=== PATIENT | female | born 1970 | race Caucasian/White ===

== ENCOUNTER 2025-06-27 10:34 | Emergency (ER) | payer OTHER, SELFPAY ==
--- NOTE | ~2025-06-27 | XR_ITS ---
EXAMINATION: XR ankle RT min 3V DATE: 06/27/2025 12:43 INDICATION: Atraumatic left ankle pain TECHNIQUE: Anteroposterior, oblique, mortise, and lateral views of the left ankle were obtained. COMPARISON: None. FINDINGS: Alignment is normal. No fracture. Joint spaces are well maintained. No cortical erosions or periosteal reaction. No ankle joint effusion. The soft tissues are unremarkable. IMPRESSION: 1. Negative left ankle radiographs. Reviewed, dictated and finalized at location A. 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
--- NOTE | ~2025-06-27 | US_ITS ---
EXAMINATION: US venous doppler LE RT DATE: 06/27/2025 12:52 INDICATION: Atraumatic right lower limb pain TECHNIQUE: Grayscale ultrasound images without and with compression and Doppler ultrasound images of the right lower extremity veins were obtained. COMPARISON: None. FINDINGS: The visualized portions of right common femoral vein, profunda (deep) femoral vein, femoral vein, popliteal vein, peroneal trunk, posterior tibial veins, peroneal veins, gastrocnemius vein and greater saphenous vein outflow are patent. IMPRESSION: 1. No deep venous thrombosis in the right lower limb. Reviewed, dictated and finalized at location A. 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
[2025-06-27 10:45] VITALS: BP 123/76; PULSE 90; RESP 16; TEMP 36.6; O2SAT 97
--- NOTE | 2025-06-27 12:33 | ED.EXTPRO ---
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 Related Data Home Medications ?Medication ?Instructions ?Recorded ?Confirmed ?Last Taken ?Type multivitamin with minerals-folic 0.4 mg PO DAILY 06/15/19 12/13/24 3 Days Ago History acid 0.4 mg tablet (Adult One ~06/24/19 Daily Multivitamin) vit D3-folic acid-vit B2-B6-B12 1 tablet PO DAILY 06/15/19 12/13/24 3 Days Ago History 2,000 unit-800 mcg-0.32 mg tablet ~06/24/19 Allergies Allergy/AdvReac Type Severity Reaction Status Date / Time No Known Allergies Allergy Unknown Verified 06/27/25 10:49 Review of Systems Review of Systems: All systems reviewed & are unremarkable except as noted in HPI and below PMFSH Past Medical History Medical History (Updated 06/27/25 @ 13:02 by Kendra Daniel MD) Recurrent cold sores Stress incontinence Panic disorder [episodic paroxysmal anxiety] Anemia Anxiety Surgical History Surgical History History of total vaginal hysterectomy (TVH) 06/28/2019 History of endometrial biopsy 11/2011 H/O tubal ligation History of endometrial ablation Family History Family History Sibling , of heart attack at age 35 No problems noted. Father Hypertension Mother No problems noted. Grandparent Heart disease Cancer Social History Social History Smoking status: Never smoker Alcohol intake: current Substance use: never Substance use type: does not use Lack of Transportation: No Lack of Food: Never True Current Housing: I Have Housing Concerned About Future Housing: No Difficulty Paying Gas/Electric Bills: No Difficulty Paying for Meds: No Currently Unemployed: No Education: High School Diploma/GED Difficulty w/ Childcare or Family Care: No Living arrangements: with family Occupation/Education: occupation Gender identity (if verbalized by the patient): Female Sexual Orientation (if Verbalized by the Patient): Straight or Heterosexual Exam Narrative: EXAMINATION OF ORGAN SYSTEMS/BODY AREAS: Constitutional: Vital signs per nursing GENERAL:[No acute distress, non-toxic appearing.] HEAD: Normal with no signs of head trauma. EYES: EOMI, conjunctiva normal ENT: Hearing grossly intact LUNGS: Nonlabored breathing. HEART: [Regular rate and rhythm] ABD: [Soft], [nontender to palpation] EXT: Normal range of motion; some tenderness to R ankle. No swelling. SKIN: [No rashes or lesions.] NEURO: [Alert. No gross focal sensory or strength deficits.] PSYCH: Normal affect Course Vital Signs Vital signs: Vital Signs Temperature 97.8 F 06/27/25 10:45 Pulse Rate 90 06/27/25 10:45 Respiratory Rate 16 06/27/25 10:45 Blood Pressure 123/76 06/27/25 10:45 Pulse Oximetry 97 06/27/25 10:45 Oxygen Delivery Room Air 06/27/25 10:45 Temperature 97.8 F 06/27/25 10:45 Pulse Rate 69 06/27/25 13:20 Respiratory Rate 14 06/27/25 13:20 Blood Pressure 114/60 06/27/25 13:20 Pulse Oximetry 99 06/27/25 13:20 Oxygen Delivery Room Air 06/27/25 10:45 [facility] MDM Narrative Medical decision making narrative: Patient presents with 2 weeks now with pain to her lower leg/ankle, no recent trauma. Negative tib-fib x-ray. Well-appearing here, neurovascularly intact, no swelling, some very minimal tenderness to the ankle. X-ray negative for acute fracture, DVT ultrasound is negative. Discussed findings with patient, can trial a course of NSAIDs, prednisone, follow-up to orthopedist and return precautions Differential Diagnosis Differential Diagnosis: sprain, arthritis flare, DVT Imaging Data Radiologist's impression: ITS Impressions Ankle X-Ray 06/27/25 12:47 IMPRESSION: 1. Negative left ankle radiographs. Venous Doppler Study 06/27/25 12:56 IMPRESSION: 1. No deep venous thrombosis in the right lower limb. Discharge Plan Discharge Clinical Impression: Pain in right leg Patient Disposition: Home Condition: Stable Instructions: Leg Pain (ED) Additional Instructions: try the medications as prescribed, and follow up with your orthopedist. You can always return to the ER for any further issues. Patient Language: Malay Prescriptions: New prednisone 20 mg tablet 40 mg PO DAILY 5 Days Qty: 10 0RF acetaminophen [Tylenol Extra Strength] 500 mg tablet 1,000 mg PO Q6H PRN (Reason: pain) Qty: 50 0RF No Action clotrimazole-betamethasone 1-0.05 % cream 1 applic topical BID Qty: 15 0RF Adult One Daily Multivitamin 0.4 mg Tablet 0.4 mg PO DAILY vit D3-folic sphr-Z4-Y2-B12 2,000-800-0.32 unit-mcg-mg Tablet 1 tablet PO DAILY sertraline 50 mg tablet See Rx Instructions .ROUTE .COMPLEX Qty: 90 1RF Dose Instruction: TAKE 1 TABLET BY MOUTH DAILY Rx Instructions: TAKE 1 TABLET BY MOUTH DAILY oxybutynin chloride 10 mg tablet extended release 24hr See Rx Instructions .ROUTE .COMPLEX Qty: 90 1RF Dose Instruction: TAKE 1 TABLET BY MOUTH DAILY Rx Instructions: TAKE 1 TABLET BY MOUTH DAILY Follow-up/Referrals: Iron Hernandez MD [Primary Care Provider, Family Practice]
[2025-06-27] MEDS: KETOROLAC 30 MG/ML VIAL (*BKC) 15 MG IM (13:18)
[2025-06-27 13:20] VITALS: BP 114/60; PULSE 69; RESP 14; O2SAT 99
== END 2025-06-27 13:35 | disposition home or self-care (01) ==
PROVIDERS: Emergency Provider Emergency Medicine; PCP Family Medicine
DX: M79.604 Pain in right leg (principal); F41.0 Panic disorder [episodic paroxysmal anxiety]; Z86.2 Personal history of diseases of the blood and blood-forming organs and certain disorders involving the immune mechanism; Z90.710 Acquired absence of both cervix and uterus
CPT/HCPCS: 73610; 93971; 96372; 99284; J1885